=== PATIENT | male | born 1930 | race Caucasian/White ===

== ENCOUNTER 2018-08-25 16:46 | Inpatient (IN) | payer MEDICARE ==
--- NOTE | 2018-08-25 17:42 | PCM.HP ---
H&P History of Present Illness - General Date of Service: 08/25/18 Admit Problem/Dx: Admission Diagnosis/Problem Admission Diagnosis/Problem Debility Source of Information: Patient History Limitations: Reports: No Limitations - History of Present Illness Initial Comments - Free Text/Narative: Mr. Charles is an 88-year-old male admitted for physical deconditioning. He was In the hospital for 2 weeks due to anemia,and now needs strengthening and rehabilitation before being discharged. His discharge hgb was 9.5.He has a history of pulmonary embolism (developed in the hospital recently), radiation cystitis, gross hematuria and Sullivan catheter in situ. Also has a history of dyslipidemia, coronary disease and Acne rosacea. - Related Data Home Medications: Home Meds Apixaban [Eliquis] 10 mg PO BID 08/25/18 [History] Ferrous Sulfate 325 mg PO DAILY 08/25/18 [History] L.acidoph,Paracasei, B.lactis [Probiotic] 1 each PO DAILY 08/25/18 [History] Psyllium Husk (With Sugar) [Metamucil Free Powder] 1 tsp PO DAILY 08/25/18 [ History] atorvaSTATin [Lipitor] 40 mg PO DAILY 08/25/18 [History] H&P Review of Systems - Review of Systems: Review Of Systems: ROS reveals no pertinent complaints other than HPI. Exam - Exam Exam: See Below - Vital Signs Weight: 65.68 kg - Exam General: Alert, Oriented, 4 HEENT: PERRLA, Hearing Intact, Mucosa Moist & [place], Nares Patent, Normal Nasal Septum, Posterior Pharynx Clear, Conjunctiva Clear, EOMI, EACs Clear, TMs Clear Neck: Supple, Trachea Midline, 2 Lungs: Clear to Auscultation, Normal Respiratory Effort Cardiovascular: Regular Rate, Regular Rhythm, Systolic Murmur GI/Abdominal Exam: Normal Bowel Sounds, Soft, Non-Tender, No Organomegaly, No Distention, No Abnormal Bruit, No Mass, Pelvis Stable (Male) Exam: Other (Sullivan) Rectal (Males) Exam: Deferred Back Exam: Normal Inspection, Full Range of Motion, NT Extremities: Normal Inspection, Normal Range of Motion, Non-Tender, No Pedal Edema, Normal Capillary Refill Skin: Warm, Dry, Intact Neurological: Cranial Nerves Intact, Reflexes Equal Bilateral Neuro Extensive - Mental Status: Alert, Oriented x3, Normal Mood/Affect, Normal Cognition Neuro Extensive - Motor, Sensory, Reflexes: CN II-XII Intact, Normal Gait, Normal Reflexes Psychiatric: Alert, Normal Affect, Normal Mood - Problem List (1) Physical deconditioning SNOMED Code(s): 88747621951260 ICD Code: R53.81 - OTHER MALAISE Status: Acute Current Visit: Yes (2) Anemia SNOMED Code(s): 297842939 ICD Code: D64.9 - ANEMIA, UNSPECIFIED Status: Acute Current Visit: Yes Qualifiers: Anemia type: unspecified type Qualified Code(s): D64.9 - Anemia, unspecified (3) Radiation cystitis SNOMED Code(s): 48819023 ICD Code: N30.40 - IRRADIATION CYSTITIS WITHOUT HEMATURIA Status: Acute Current Visit: Yes (4) CAD (coronary artery disease) SNOMED Code(s): 57868242 ICD Code: I25.10 - ATHSCL HEART DISEASE OF [place] CORONARY ARTERY W/O ANG PCTRS Status: Chronic Current Visit: Yes Qualifiers: Coronary Disease-Associated Artery/Lesion type: [place] artery (5) Pulmonary emboli SNOMED Code(s): 36121807 ICD Code: I26.99 - OTHER PULMONARY EMBOLISM WITHOUT ACUTE COR PULMONALE Status: Acute Current Visit: Yes Qualifiers: Pulmonary embolism type: unspecified (6) Sullivan catheter in place SNOMED Code(s): 078542260 ICD Code: Z96.0 - PRESENCE OF UROGENITAL IMPLANTS Status: Acute Current Visit: Yes Problem List Initiated/Reviewed/Updated: Yes Orders Last 24hrs: Active Orders 24 hr Category Date Time Status Patient Status [ADT] Routine ADT 08/25/18 17:15 Active Height and Weight [RC] WEEKLY Care 08/25/18 17:15 Active Oxygen Therapy [RC] PRN Care 08/25/18 17:15 Active Up With Assistance [RC] ASDIRECTED Care 08/25/18 17:15 Active VTE/DVT Education [RC] Per Unit Routine Care 08/25/18 17:15 Active Vital Signs [RC] PER UNIT ROUTINE Care 08/25/18 17:15 Active OT Evaluation and Treatment [CONS] Routine Cons 08/25/18 17:15 Active PT Evaluation and Treatment [CONS] Routine Cons 08/25/18 17:15 Active Regular Diet [DIET] Diet 08/25/18 Breakfast Active Apixaban [Eliquis] Med 08/25/18 21:00 Ordered 10 mg PO BID Ferrous Sulfate Med 08/26/18 09:00 Ordered 325 mg PO DAILY L.acidoph,Paracasei, B.lactis [Probiotic] Med 08/26/18 09:00 Ordered 1 each PO DAILY Psyllium Husk (With Sugar) [Metamucil Free Powder] Med 08/26/18 09:00 Ordered 1 tsp PO DAILY atorvaSTATin [Lipitor] Med 08/26/18 09:00 Ordered 40 mg PO DAILY Resuscitation Status Routine Resus Stat 08/25/18 17:15 Ordered Medication Orders Apixaban (Eliquis) 10 mg PO BID JEANNA Atorvastatin Calcium (Lipitor) 40 mg PO DAILY JEANNA Ferrous Sulfate (Ferrous Sulfate) 325 mg PO DAILY JEANNA Non-Formulary Medication (L.Acidoph,Paracasei, B.Lactis [Probiotic]) 1 each PO DAILY JEANNA Non-Formulary Medication (Psyllium Husk (With Sugar) [Metamucil Free Powder]) 1 tsp PO DAILY JEANNA Assessment/Plan Comment:: We will admit him to swing bed for physical and occupational therapy. Continue with his current medications including anticoagulation for PE.
[2018-08-25] MEDS: Apixaban 5 MG Tab PO SCH (21:49)
[2018-08-26] MEDS: Apixaban 5 MG Tab PO SCH ×2 (08:53→21:11)
[2018-08-26] MEDS: Ferrous Sulfate 325 MG Tab PO SCH (08:54)
[2018-08-26] MEDS: atorvaSTATin 40 MG Tab PO SCH (08:54)
[2018-08-26] MEDS: Saccharomyces Boulardii (Probiotic) 250 MG Cap PO SCH (08:54)
[2018-08-26] MEDS: Psyllium Husk Powder Sugar Free 5.85 GM Packet PO SCH (08:55)
[2018-08-27] MEDS: Psyllium Husk Powder Sugar Free 5.85 GM Packet PO SCH (08:12)
[2018-08-27] MEDS: atorvaSTATin 40 MG Tab PO SCH (08:13)
[2018-08-27] MEDS: Saccharomyces Boulardii (Probiotic) 250 MG Cap PO SCH (08:13)
[2018-08-27] MEDS: Apixaban 5 MG Tab PO SCH (08:13)
[2018-08-27] MEDS: Ferrous Sulfate 325 MG Tab PO SCH (08:14)
--- NOTE | 2018-08-27 08:38 | PCM.PN ---
- General Info Date of Service: 08/27/18 Admission Dx/Problem (Free Text): Patient states he has a little rash in his groin. He denies shortness of breath , fevers, chills, chest pain. He still has a catheter in at this time. No blood in his urine - Patient Data Vitals - Most Recent: Last Vital Signs Temp 98.5 F 08/27/18 02:26 Pulse 86 08/27/18 02:26 Resp 18 08/27/18 02:26 BP 115/59 L 08/27/18 02:26 Pulse Ox 92 L 08/27/18 02:26 Weight - Most Recent: 144 lb 12.8 oz I&O - Last 24 Hours: Intake & Output 08/26/18 08/27/18 08/27/18 22:59 06:59 14:59 Output Total 1650 1100 Balance -1650 -1100 Med Orders - Current: Current Medications Apixaban (Eliquis) 10 mg PO BID [facility] Stop: 08/31/18 09:01 Last Admin: 08/27/18 08:13 Dose: 10 mg Apixaban (Eliquis) 5 mg PO BID [facility] Atorvastatin Calcium (Lipitor) 40 mg PO DAILY [facility] Last Admin: 08/27/18 08:13 Dose: 40 mg Ferrous Sulfate (Ferrous Sulfate) 325 mg PO DAILY [facility] Last Admin: 08/27/18 08:14 Dose: 325 mg Psyllium Husk (Metamucil Sugar Free) 1 pkt PO DAILY [facility] Last Admin: 08/27/18 08:12 Dose: 1 pkt Saccharomyces Boulardii (Florastor) 250 mg PO DAILY [facility] Last Admin: 08/27/18 08:13 Dose: 250 mg - Exam General: Alert, Oriented Lungs: Clear to Auscultation, Normal Respiratory Effort Cardiovascular: Regular Rate, Regular Rhythm, Murmurs Extremities: No Pedal Edema Skin: Rash (Groin bilaterally that's erythematous without any drainage. ) - Problem List & Annotations (1) Contact dermatitis SNOMED Code(s): 47377312 Code(s): L25.9 - UNSPECIFIED CONTACT DERMATITIS, UNSPECIFIED CAUSE Status: Acute Current Visit: Yes (2) Anemia SNOMED Code(s): 391903456 Code(s): D64.9 - ANEMIA, UNSPECIFIED Status: Acute Current Visit: Yes Qualifiers: Anemia type: unspecified type Qualified Code(s): D64.9 - Anemia, unspecified (3) Sullivan catheter in place SNOMED Code(s): 758555377 Code(s): Z96.0 - PRESENCE OF UROGENITAL IMPLANTS Status: Acute Current Visit: Yes (4) Physical deconditioning SNOMED Code(s): 25729806771046 Code(s): R53.81 - OTHER [place] Status: Acute Current Visit: Yes (5) Pulmonary emboli SNOMED Code(s): 56951073 Code(s): I26.99 - OTHER PULMONARY EMBOLISM WITHOUT ACUTE COR PULMONALE Status: Acute Current Visit: Yes Qualifiers: Pulmonary embolism type: unspecified (6) Radiation cystitis SNOMED Code(s): 24519043 Code(s): N30.40 - IRRADIATION CYSTITIS WITHOUT HEMATURIA Status: Acute Current Visit: Yes - Problem List Review Problem List Initiated/Reviewed/Updated: Yes - Plan Plan:: Discharge to the [facility] on his current medication and Sullivan in place. A and D ointment when necessary for his groin
--- NOTE | 2018-08-27 08:44 | PCM.DCSUM1 ---
Discharge Summary - Hospital Course Free Text/Narrative:: Swing bed course-patient had physical therapy and occupational therapy. Catheter was in place and manage. Patient did well but was not in good enough condition to go home. Because of insurance we had to transfer the [facility] for home health, PT/OT. No labs are done while he was here. He did have a rash the day of discharge him use some Desitin cream when necessary for this. Appears to be contact dermatitis in the groin. He has appointment set up on October 31 with his regular doctor and September 20 with the urologist. He will be transferred with Sullivan catheter in place. Brief History: Mr. Charles is an 88-year-old male admitted for physical deconditioning. He was In the hospital for 2 weeks due to anemia,and now needs strengthening and rehabilitation before being discharged. His discharge hgb was 9.5.He has a history of pulmonary embolism (developed in the hospital recently) , radiation cystitis, gross hematuria and Sullivan catheter in situ. Also has a history of dyslipidemia, coronary disease and Acne rosacea. Diagnosis: Stroke: No - Discharge Data Discharge Date: 08/27/18 Discharge Disposition: DC/Tfer to [facility] Condition: Good - Discharge Diagnosis/Problem(s) (1) Contact dermatitis SNOMED Code(s): 87990269 ICD Code: L25.9 - UNSPECIFIED CONTACT DERMATITIS, UNSPECIFIED CAUSE Status : Acute Current Visit: Yes (2) Anemia SNOMED Code(s): 536764284 ICD Code: D64.9 - ANEMIA, UNSPECIFIED Status: Acute Current Visit: Yes Qualifiers: Anemia type: unspecified type Qualified Code(s): D64.9 - Anemia, unspecified (3) Sullivan catheter in place SNOMED Code(s): 809292277 ICD Code: Z96.0 - PRESENCE OF UROGENITAL IMPLANTS Status: Acute Current Visit: Yes (4) Physical deconditioning SNOMED Code(s): 18069333792587 ICD Code: R53.81 - OTHER [place] Status: Acute Current Visit: Yes (5) Pulmonary emboli SNOMED Code(s): 71841162 ICD Code: I26.99 - OTHER PULMONARY EMBOLISM WITHOUT ACUTE COR PULMONALE Status: Acute Current Visit: Yes Qualifiers: Pulmonary embolism type: unspecified (6) Radiation cystitis SNOMED Code(s): 76735442 ICD Code: N30.40 - IRRADIATION CYSTITIS WITHOUT HEMATURIA Status: Acute Current Visit: Yes - Patient Summary/Data Consults: Consultations 08/25/18 17:15 OT Evaluation and Treatment [CONS] Routine Please Evaluate and Treat. OT Reason for Consult: Strengthening This query below is only for informational purposes and is not editable. PT Evaluation and Treatment [CONS] Routine Please Evaluate and Treat. PT Reason for Consult: Ambulation This query below is only for informational purposes and is not editable. - Patient Instructions Diet: Regular Diet as Tolerated Activity: As Tolerated Driving: Do Not Drive Showering/Bathing: May Shower Other/Special Instructions: 1. Home health/PT/OT regarding catheter management, medication management, strengthening, ambulation, ADLs. 2. Recheck with his regular doctor on October 31 Dr. Rice. 3. Appointment with urology to [facility] September 20. 4. Desitin cream to the groin when necessary. - Discharge Plan Prescriptions/Med Rec: Apixaban [Eliquis] 10 mg PO BID #60 tablet Home Medications: Home Meds Ferrous Sulfate 325 mg PO DAILY 08/25/18 [History] L.acidoph,Paracasei, B.lactis [Probiotic] 1 each PO DAILY 08/25/18 [History] Psyllium Husk (With Sugar) [Metamucil Free Powder] 1 tsp PO DAILY 08/25/18 [ History] atorvaSTATin [Lipitor] 40 mg PO DAILY 08/25/18 [History] Apixaban [Eliquis] 5 mg PO BID 08/26/18 [History] Apixaban [Eliquis] 10 mg PO BID #60 tablet 08/27/18 [Rx] - Discharge Summary/Plan Comment DC Time >30 min.: No - Patient Data Vitals - Most Recent: Last Vital Signs Temp 98.5 F 08/27/18 02:26 Pulse 86 08/27/18 02:26 Resp 18 08/27/18 02:26 BP 115/59 L 08/27/18 02:26 Pulse Ox 92 L 08/27/18 02:26 Weight - Most Recent: 144 lb 12.8 oz I&O - Last 24 hours: Intake & Output 08/26/18 08/27/18 08/27/18 22:59 06:59 14:59 Output Total 1650 1100 Balance -1650 -1100 Med Orders - Current: Current Medications Apixaban (Eliquis) 10 mg PO BID [facility] Stop: 08/31/18 09:01 Last Admin: 08/27/18 08:13 Dose: 10 mg Apixaban (Eliquis) 5 mg PO BID [facility] Atorvastatin Calcium (Lipitor) 40 mg PO DAILY [facility] Last Admin: 08/27/18 08:13 Dose: 40 mg Ferrous Sulfate (Ferrous Sulfate) 325 mg PO DAILY [facility] Last Admin: 08/27/18 08:14 Dose: 325 mg Psyllium Husk (Metamucil Sugar Free) 1 pkt PO DAILY [facility] Last Admin: 08/27/18 08:12 Dose: 1 pkt Saccharomyces Boulardii (Florastor) 250 mg PO DAILY [facility] Last Admin: 08/27/18 08:13 Dose: 250 mg
[2018-08-31] MEDS ORDERED: Apixaban 5 MG Tab PO SCH (21:00)
== END 2018-08-27 12:05 | DRG 948 ==
LOC: FB.MS 16:46
PROVIDERS: ADMIT Family Medicine; ATTEND Family Medicine
DX: R53.81 Other malaise (principal); N30.40 Irradiation cystitis without hematuria; N30.41 Irradiation cystitis with hematuria; D64.9 Anemia, unspecified; I25.10 Atherosclerotic heart disease of native coronary artery without angina pectoris; Z86.711 Personal history of pulmonary embolism; R31.0 Gross hematuria; E78.5 Hyperlipidemia, unspecified; L71.9 Rosacea, unspecified; Z79.01 Long term (current) use of anticoagulants; L25.9 Unspecified contact dermatitis, unspecified cause
CPT/HCPCS: 97165-GO; 97530-GO; A9270-GY